=== PATIENT | male | born 1930 | race Hispanic/Latino ===

== ENCOUNTER 2019-01-30 09:53 | Emergency (ER) | payer OTHER ==
[2019-01-30] MEDS ORDERED: cloNIDine HCl 0.1 MG TAB ONE (10:37)
--- NOTE | 2019-01-30 11:05 | RAD REPORT ---
EXAM DESCRIPTION: RAD - Knee Right 3 View - 01/30/2019 10:42 am CLINICAL HISTORY: Right knee pain FINDINGS: No fracture or dislocation is seen. Small to moderate joint effusion is suspected. Moderate osteoarthritis medial compartment If the patient continues have symptoms to suggest an occult fracture, ligamentous or meniscal injury then an MRI would be recommended.
--- NOTE | 2019-01-30 11:21 | ER ---
Nurse's Notes [facility] Name: Jasson Mcgrath Age: 88 yrs Sex: Male : 1930 Arrival Date: 01/30/2019 Time: 09:55 Bed 5 Private MD: Blake Clark R Diagnosis: Pain in right knee;Hypertensive heart disease Presentation: 01/30 10:05 Presenting complaint: Child states: He was stretching his right knee on Friday a week la1 ago and felt a pop. I havent been at home until Friday so I told him if it was still hurting we would just go to the ER. Transition of care: patient was not received from another setting of care. Onset of symptoms was January 30, 2019. Risk Assessment: Do you want to hurt yourself or someone else? Patient reports no desire to harm self or others. Initial Sepsis Screen: Does the patient meet any 2 criteria? No. Patient's initial sepsis screen is negative. Does the patient have a suspected source of infection? No. Patient's initial sepsis screen is negative. Care prior to arrival: None. 10:05 Method Of Arrival: Ambulatory la1 10:05 Acuity: KATHRYN 4 la1 Historical: - Allergies: 10:06 No Known Allergies; la1 - Home Meds: 10:06 amlodipine 5 mg tab 1 tab once daily [Active]; metoprolol succinate 25 mg Oral Tb24 1 la1 tab once daily [Active]; omeprazole 40 mg Oral cpDR 1 cap once daily [Active]; prednisone 2.5 mg Oral tab once daily [Active]; - PMHx: 10:06 Arthritis; Hypertension; la1 - Immunization history:: Adult Immunizations up to date. - Social history:: Smoking status: Patient/guardian denies using tobacco. - Ebola Screening: : No symptoms or risks identified at this time. Screenin:08 Abuse screen: Denies threats or abuse. Nutritional screening: No deficits noted. la1 Tuberculosis screening: No symptoms or risk factors identified. Fall Risk None identified. Assessment: 10:07 General: Appears in no apparent distress. Behavior is calm, cooperative. Pain: la1 Complains of pain in posterior aspect of right knee and medial aspect of right knee. Neuro: Level of Consciousness is awake, alert, obeys commands, Oriented to person, place, time, situation. Cardiovascular: Capillary refill < 3 seconds Patient's skin is warm and dry. Respiratory: Airway is patent Respiratory effort is even, unlabored. GI: No signs and/or symptoms were reported involving the gastrointestinal system. : No signs and/or symptoms were reported regarding the genitourinary system. Musculoskeletal: Circulation, motion, and sensation intact. Capillary refill < 3 seconds, is brisk, in bilateral toes. 10:08 Reassessment: Pt reports he has not taken his home meds for BP today, denies CP, MERRILL, la1 dizziness. Vital Signs: 10:06 BP 216 / 68; Pulse 50; Resp 16; Temp 97.7; Pulse Ox 98% on R/A; Weight 81.65 kg; Height la1 5 ft. 7 in. (170.18 cm); 10:24 BP 207 / 69; la1 10:59 BP 205 / 67; Pulse 51; Resp 18; Pulse Ox 98% on R/A; la1 11:25 BP 199 / 71; Pulse 92; Resp 16; Pulse Ox 98% on R/A; la1 10:06 Body Mass Index 28.19 (81.65 kg, 170.18 cm) la1 ED Course: 09:55 Patient arrived in ED. mr 09:57 Dagoberto Camarillo PA is PHCP. cp 09:57 James Hull MD is Attending Physician. cp 09:57 Blake Clark MD is Private Physician. mr 10:04 Terrell Grover, RN is Primary Nurse. la1 10:05 Triage completed. la1 10:07 Arm band placed on left wrist. la1 10:08 Placed in gown. Bed in low position. Call light in reach. la1 10:08 No provider procedures requiring assistance completed. la1 10:38 XRAY Knee RIGHT 3 view In Process Unspecified. EDMS 11:20 Darryl Hinojosa MD is Referral Physician. cp 11:25 Patient did not have IV access during this emergency room visit. la1 Administered Medications: 10:28 Drug: cloNIDine 0.2 mg Route: PO; la1 11:17 Drug: UltRAM 50 mg Route: PO; la1 Outcome: 11:20 Discharge ordered by MD. cp 11:25 Discharged to home ambulatory. la1 11:25 Condition: good 11:25 Discharge instructions given to patient, Instructed on discharge instructions, follow up and referral plans. medication usage, Demonstrated understanding of instructions, follow-up care, medications, Prescriptions given X 1. 11:35 Patient left the ED. la1 Signatures: Dispatcher [employer] DANIEL AvelarMinna LenoreTerrell, RN RN la1 Dagoberto Camarillo PA PA cp
--- NOTE | 2019-01-30 11:21 | EDPHYS ---
Physician Documentation [facility] Name: Jasson Mcgrath Age: 88 yrs Sex: Male : 1930 Arrival Date: 01/30/2019 Time: 09:55 Bed 5 Private MD: Blake Clark R ED Physician James Hull HPI: 01/30 10:33 This 88 yrs old Male presents to ER via Ambulatory with complaints of Knee cp swelling. 10:33 The patient presents with pain, that is acute, swelling. The complaints affect the cp right knee. Context: resulted from twisting of the extremity, while stretching. Onset: The symptoms/episode began/occurred 1 week(s) ago. 10:33 Associated signs and symptoms: Pertinent positives: swelling, Pertinent negatives calf cp tenderness, fever, numbness, warmth. 10:33 Treatment prior to arrival includes: no previous treatment. Severity of symptoms: in cp the emergency department the symptoms are unchanged, despite home interventions. Historical: - Allergies: 10:06 No Known Allergies; la1 - Home Meds: 10:06 amlodipine 5 mg tab 1 tab once daily [Active]; metoprolol succinate 25 mg Oral Tb24 1 la1 tab once daily [Active]; omeprazole 40 mg Oral cpDR 1 cap once daily [Active]; prednisone 2.5 mg Oral tab once daily [Active]; - PMHx: 10:06 Arthritis; Hypertension; la1 - Immunization history:: Adult Immunizations up to date. - Social history:: Smoking status: Patient/guardian denies using tobacco. - Ebola Screening: : No symptoms or risks identified at this time. ROS: 10:40 Constitutional: Negative for body aches, chills, fever, poor PO intake. cp 10:40 Eyes: Negative for injury, pain, redness, and discharge. cp 10:40 ENT: Negative for drainage from ear(s), ear pain, sore throat, difficulty swallowing, difficulty handling secretions. 10:40 Cardiovascular: Negative for chest pain, edema, palpitations. 10:40 Respiratory: Negative for cough, shortness of breath, wheezing. 10:40 Abdomen/GI: Negative for abdominal pain, nausea, vomiting, and diarrhea. 10:40 Back: Negative for pain at rest, pain with movement, radiated pain. 10:40 MS/extremity: Positive for pain, swelling, tenderness, of the right knee, Negative for injury or acute deformity, decreased range of motion. 10:40 Skin: Negative for erythema. 10:40 All other systems are negative. Exam: 10:45 Constitutional: The patient appears in no acute distress, alert, awake, cp non-diaphoretic, non-toxic, well developed, well nourished. 10:45 Head/Face: Normocephalic, atraumatic. cp 10:45 Eyes: Periorbital structures: appear normal, Conjunctiva: normal, no exudate, no injection, Sclera: no appreciated abnormality, Lids and lashes: appear normal, bilaterally. 10:45 ENT: External ear(s): are unremarkable, Nose: is normal, Mouth: Lips: moist, Oral mucosa: moist, Posterior pharynx: Airway: no evidence of obstruction, patent. 10:45 Neck: ROM/movement: is normal, is supple, without pain, no range of motions limitations. 10:45 Chest/axilla: Inspection: normal. 10:45 Cardiovascular: Rate: bradycardic, Rhythm: regular. 10:45 Respiratory: the patient does not display signs of respiratory distress, Respirations: normal, no use of accessory muscles, no retractions, no splinting, no tachypnea, labored breathing, is not present, Breath sounds: are clear throughout, no decreased breath sounds, no stridor, no wheezing. 10:45 Abdomen/GI: Exam negative for discomfort, distension, guarding, Inspection: abdomen appears normal. 10:45 Back: pain, is absent, ROM is normal. 10:45 Musculoskeletal/extremity: Perfusion: the extremity is normally perfused throughout, Sensation intact. Joints: All joints are normal except the right knee displays painful range of motion, swelling, tenderness. 10:45 Skin: cellulitis, is not appreciated, no rash present. Vital Signs: 10:06 BP 216 / 68; Pulse 50; Resp 16; Temp 97.7; Pulse Ox 98% on R/A; Weight 81.65 kg; Height la1 5 ft. 7 in. (170.18 cm); 10:24 BP 207 / 69; la1 10:59 BP 205 / 67; Pulse 51; Resp 18; Pulse Ox 98% on R/A; la1 11:25 BP 199 / 71; Pulse 92; Resp 16; Pulse Ox 98% on R/A; la1 10:06 Body Mass Index 28.19 (81.65 kg, 170.18 cm) la1 MDM: 09:57 Patient medically screened. cp 11:00 Differential diagnosis: closed fracture, effusion, ligament injury. cp 11:20 Data reviewed: vital signs, nurses notes, radiologic studies, plain films. cp 11:20 Test interpretation: by ED physician or midlevel provider: plain radiologic studies. cp Counseling: I had a detailed discussion with the patient and/or guardian regarding: the historical points, exam findings, and any diagnostic results supporting the discharge/admit diagnosis, radiology results, the need for outpatient follow up, a orthopedic surgeon, to return to the emergency department if symptoms worsen or persist or if there are any questions or concerns that arise at home. Response to treatment: the patient's symptoms have mildly improved after treatment, and as a result, I will discharge patient. 01/30 10:21 Order name: XRAY Knee RIGHT 3 view; Complete Time: 11:12 cp Administered Medications: 10:28 Drug: cloNIDine 0.2 mg Route: PO; la1 11:17 Drug: UltRAM 50 mg Route: PO; la1 Disposition: 01/30/19 11:20 Discharged to Home. Impression: Pain in right knee, Hypertensive heart disease. - Condition is Stable. - Discharge Instructions: How to Use a Knee Brace, Knee Pain, Managing Your Hypertension. - Prescriptions for Tramadol 50 mg Oral Tablet - take 1 tablet by ORAL route every 8 hours as needed; 12 tablet. - Medication Reconciliation Form, Thank You Letter, Antibiotic Education, Prescription Opioid Use form. - Follow up: Darryl Hinojosa MD; When: 2 - 3 days; Reason: right knee pain. - Problem is new. - Symptoms have improved. Signatures: Dispatcher [employer] EDMS Terrell Grover RN RN la1 Dagoberto Camarillo PA PA cp Corrections: (The following items were deleted from the chart) 11:35 11:20 01/30/2019 11:20 Discharged to Home. Impression: Pain in right knee; Hypertensive la1 heart disease. Condition is Stable. Forms are Medication Reconciliation Form, Thank You Letter, Antibiotic Education, Prescription Opioid Use. Follow up: Darryl Hinojosa; When: 2 - 3 days; Reason: right knee pain. Problem is new. Symptoms have improved. cp
[2019-01-30] MEDS ORDERED: TRAMADOL HCL 50 MG TAB ONE (11:26)
[2019-01-30 11:39] VITALS: TEMP 97.7; O2SAT 98
[2019-01-30 11:43] VITALS: BP 199/71
== END 2019-01-30 11:35 | disposition home or self-care (01) ==
LOC: ER 09:53
DX: M25.561 Pain in right knee (principal); I11.9 Hypertensive heart disease without heart failure; I10 Essential (primary) hypertension
CPT/HCPCS: 99283